=== PATIENT | female | born 1940 | race Caucasian/White ===

== ENCOUNTER 2016-06-05 12:03 | Emergency (ER) | payer MEDICARE ==
[2016-01-06 06:29] VITALS: BMI 22.7
[~2016-06-05 12:03] MED LIST: CELEXA20 MG PO; COUMADIN2 MG PO; ISOSORBIDE MONO30 M1 PO; K-DUR20 MEQ PO; LASIX40 MG PO; METHADONE5 MG PO; PACERONE200 MG PO; UNITHROID50 MCG PO
== END 2016-06-05 14:29 | disposition home or self-care (01) ==
LOC: D.ER 12:03
DX: S63.501A Unspecified sprain of right wrist, initial encounter (principal); W19.XXXA Unspecified fall, initial encounter; Y93.89 Activity, other specified; Y92.019 Unspecified place in single-family (private) house as the place of occurrence of the external cause; F32.9 Major depressive disorder, single episode, unspecified

== ENCOUNTER 2020-09-15 21:57 | Inpatient (IN) | payer MEDICARE ==
[~2020-09-15] VITALS: Ht 160 cm; Wt 57.2 kg
--- NOTE | ~2020-09-15 | OP ---
PATIENT NAME: MIGUEL ANGEL RENE MEDICAL RECORD: [id number] :42 LOCATION:D.[id number] ADMISSION DATE:09/15/20 SURGEON: BONITA MARCELO MD DATE OF OPERATION: 09/19/2020 PREOPERATIVE DIAGNOSIS: Right periprosthetic hip fracture. POSTOPERATIVE DIAGNOSIS: Right periprosthetic hip fracture. PROCEDURE PERFORMED: ORIF right periprosthetic hip fracture. INDICATIONS: Ms. Rene is a 80-year-old female who fell at home earlier this week and injured her right hip. She was turning around when she lost her balance and fell landing on her right side. She complained of pain and inability to weightbear and was brought to [place] where she was found to have a Secor B1 periprosthetic fracture of the right hip. She was also on Coumadin for blood clotting disorder and was admitted for medical management and surgery. Once we were able to correct her Coumadin, she was brought to the operating room today for operative repair. Risks, benefits, and alternatives of surgery were discussed with the patient and consent was obtained. DESCRIPTION OF PROCEDURE: The patient was met in the holding area where her identity and confirmation of procedure was performed. The right lower extremity was marked and she was taken to the operating room where she was placed supine on the operating table. Anesthesia was administered. She was then positioned on the [place] table and extremities were positioned and padded appropriately. The right lower extremity was prepped and draped in a sterile fashion. The patient received preoperative antibiotics as well as TXA and a timeout was performed prior to initiating the case. Upon initiation of the case, a Zavala-Perrin approach was utilized for exposure. The previous incision was utilized and then extended distally. We incised through the skin and subcutaneous tissues down to the tensor fascia. The fascia was then split longitudinally and the interval between tensor and the sartorius/rectus was utilized for deep exposure. We continued our dissection deep down to the anterior hip capsule. We then began releasing the tissues distally for exposure of our implant in the proximal femur. The vastus lateralis was split within its muscular body along the anterolateral femur. The bleeders throughout the muscle were cauterized. Once the fracture was able to be exposed and identified, the fracture was noted to be a long oblique fracture segment. The stem was still well fixed to the anterior fragment. It was therefore decided to fix this using a periprosthetic plate with cables and screws. The fracture hematoma was debrided. We then placed cables around the central and distal portion of the fracture and began applying traction to the leg. As traction was applied, we were able to obtain a provisional reduction. The cables were then sequentially tightened. We adjusted for rotation slightly until we were pleased with the reduction of the fracture. The cables were then securely tightened. A Christina periprosthetic proximal femur plate was then positioned over the lateral cortex of the femur. It was adjusted for positioning and alignment. Once we were pleased with its alignment under fluoroscopy, K-wires were placed distal and proximal to temporarily hold it in place. We then placed a cortical screw just distal to the fracture to compress the plate to the bone. We then placed a cable through the plate using the eye whole pieces and securely tightened it proximally. We repeated this with another cable at the eyelet near the distal end of the stem. A third cable was placed near the central portion of the stem. The plate was placed down over the cables that we had used for our reduction and these were OPERATIVE REPORT [id number] MIGUEL ANGEL RENE securely tightened, cut and left in place. The other cables were tightened and cut as well. We then began placing screws distally. Four locking screws and one cortical screw were placed distally through the plate to secure the plate distally. This provided good fixation of our fracture. Final images were obtained that showed good alignment and fixation of the fracture. The wound was irrigated thoroughly with saline. The muscle belly was reapproximated with 0 Vicryl suture. The IT band and tensor fascia was then closed with 0 Vicryl suture as well. Subcutaneous tissues were irrigated thoroughly with saline. Subcutaneous tissue was closed with 2-0 Vicryl and the skin was closed with tyrel. There was some tension on the skin distally and tension sutures were placed to help relieve some of the pressure on the tyrel. The sterile dressing was then placed. The patient was turned back over to anesthesia where she was awakened and taken to the recovery room in stable condition. POSTOPERATIVE PLAN: The patient is going to return to the floor for continued postoperative care. She will receive 24 hours of postoperative antibiotics to be started on DVT prophylaxis tomorrow. Physical therapy will be consulted to assist with mobilization. Touchdown weightbearing right lower extremity. She will likely need a course of rehab upon discharge. COMPLICATIONS: None. ESTIMATED BLOOD LOSS: 2000 mL. ANESTHESIA: General with peripheral nerve block. TRANSINT:[id number] Voice Confirmation ID: [id number] DOCUMENT ID: [id number] BONITA MARCELO MD CC: [id number] DICTATION DATE: 09/20/20 0046 BROOM MAN: 09/20/20 0544 ADM IN [facility] [address] [id number]
[2020-09-15 22:47] VITALS: BP 152/95
--- NOTE | 2020-09-15 23:34 | NUR ---
PLACED PUREWICK, PT TOLERATED WELL
[2020-09-15 23:43] VITALS: BP 133/63
[2020-09-15 23:55] LABS: BASOPHILS 0.3 % (0-2); EOSINOPHILS 0.6 % (0-7); HEMATOCRIT 35.1 % (36.0-48.0); HEMOGLOBIN 11.3 g/dL (12-16); LYMPHOCYTES 7.9 % (15-50); MCH 29.6 pg (26.0-34.0); MCHC 32.2 g/dL (31.0-37.0); MONOCYTES 3.7 % (2-11); NEUTROPHILS 87.5 % (40-80); RBC 3.81 10x6/uL (4.00-5.40); RDW 17.4 % (11.5-14.5); WBC 11.3 10x3/uL (4.8-10.8)
[2020-09-15 23:56] LABS: PLATELET COUNT 176 10x3/uL (130-400)
[2020-09-16] VITALS (10 sets, daily range): BP systolic 83–143; BP diastolic 40–87; BMI 22.3
[2020-09-16 00:17] LABS: ANION GAP 10.1 mmol/L (8-16); CALCIUM 8.7 mg/dL (8.5-10.1); CARBON DIOXIDE 31.1 mmol/L (21.0-32.0); CREATININE - SERUM 1.1 mg/dL (0.6-1.3); POTASSIUM - SERUM 4.2 mmol/L (3.5-5.1)
[2020-09-16 00:21] LABS: ALBUMIN 3.2 g/dL (3.4-5.0); BILIRUBIN - TOTAL 0.87 mg/dL (0.2-1.3); PROTEIN - SERUM 6.8 g/dL (6.4-8.2)
[2020-09-16 00:24] LABS: APTT 35.6 SECONDS (22.8-39.4); INR 1.79 (0.85-1.17); PROTIME 19.3 SECONDS (11.6-15.0)
[2020-09-16 06:24] LABS: CKMB 2.3 U/L (0.0-3.6); CREATINE KINASE 209 UL (21-215)
[2020-09-16 06:25] LABS: TROPONIN-I < 0.017 ng/mL (0.000-0.060)
--- NOTE | 2020-09-16 09:42 | NUR ---
PER DR. MARCELO, PT WILL GO TO SURGERY 09/17/20. WOULD LIKE PT TO MOVE TO HOSPITAL BED TODAY AWAITING SURGERY TOMORROW. HS NOTIFIED AT THIS TIME.
--- NOTE | 2020-09-16 10:57 | NUR ---
REPORT CALLED TO NAIMA RN/ ROOM IS NOT CLEAN AT THIS TIME. WILL TRANSPORT PT UPON COMPLETION OF CLEANING.
--- NOTE | 2020-09-16 14:30 | NUR ---
RECEIVED TO ROOM 2229 VIA STRETCHER FROM ER. A/O X3. C/O PAIN TO RIGHT THIGH. SKIN IS INTACT WITHOUT REDNESS BUT LARGE BRUISE NOTED TO LOWER ABDOMEN. IV TO LEFT FOREARM IS PATENT WITHOUT REDNESS AT INSERTION SITE. DENIES NEEDS.
--- NOTE | 2020-09-16 15:00 | NUR ---
ASSISTED WITH BED JENKINS PER STAFF. VOIDED 50CC CLEAR YELLOW URINE. REPOSITIONED IN BED FOR COMFORT. REQUESTED AND GIVEN 5MG METHADONE PO FOR C/O RIGHT THIGH PAIN LEVEL 8. WILL MONITOR.
--- NOTE | 2020-09-16 17:00 | NUR ---
RESTING QUIETLY IN BED. REPORTS PAIN IMPROVED.
--- NOTE | 2020-09-16 18:55 | NUR ---
ATE SOME OF SUPPER. VISITORS IN ROOM. DENIES NEEDS. PUREWICK IN PLACE AND FUNCTIONING.
--- NOTE | 2020-09-16 20:00 | NUR ---
RESTING IN BED EYES CLOSED, AROUSED EASILY, REPORTS PAIN TO RIGHT LEG WITH MOVEMENT, SEE SHIFT ASSESSMENT, CALL LIGHT IN REACH
--- NOTE | 2020-09-16 23:30 | NUR ---
LOLLY NATURAL RESOURCES TECHNICIAN NOTIFIED OF BP 83/45, INSTRUCTED TO CHECK MANUAL BP AND IF STILL LOW GIVE 500CC FLUID BOLUS, AND HOLD METHADONE DOSE TONIGHT, MANUAL BP 92/58 FLUID BOLUS STARTED WILL RECHECK
[2020-09-17] VITALS (7 sets, daily range): BP systolic 90–124; BP diastolic 45–78
--- NOTE | 2020-09-17 01:00 | NUR ---
BP RECHECKED MANUAL 90/60 AFTER FLUID BOLUS WILL MONITOR
--- NOTE | 2020-09-17 03:59 | NUR ---
C/O PAIN TO LEG BP WNL, REQUESTING PAIN MED, METHADONE GIVE IT WAS NOT GIVEN EARLIER DUE TO LOW BP
--- NOTE | 2020-09-17 05:00 | NUR ---
ABD DISTENDED, ONLY 100 CC URINE NOTED IN PERWIC CANISTER, BLADDER SCAN DONE 650CC, ARRIETA CATH PLACED DUE TO GOING TO SURGERY TODAY, RETURN OF 800CC CLEAR SINDY URINE
[2020-09-17 06:24] LABS: BASOPHILS 0.3 % (0-2); EOSINOPHILS 2.2 % (0-7); HEMOGLOBIN 9.8 g/dL (12-16); LYMPHOCYTES 11.3 % (15-50); MCH 31.2 pg (26.0-34.0); MCHC 33.9 g/dL (31.0-37.0); MCV 92.1 fL (80.0-100.0); MEAN PLATELET VOLUME 7.4 fL (7.4-10.4); MONOCYTES 6.1 % (2-11); NEUTROPHILS 80.1 % (40-80); PLATELET COUNT 150 10x3/uL (130-400); RBC 3.15 10x6/uL (4.00-5.40); RDW 17.5 % (11.5-14.5); WBC 9.7 10x3/uL (4.8-10.8)
[2020-09-17 06:36] LABS: ALBUMIN 2.9 g/dL (3.4-5.0); BILIRUBIN - TOTAL 0.92 mg/dL (0.2-1.3); CALCIUM 8.2 mg/dL (8.5-10.1); CARBON DIOXIDE 29.4 mmol/L (21.0-32.0); CREATININE - SERUM 1.2 mg/dL (0.6-1.3); MAGNESIUM - SERUM 1.9 mg/dL (1.8-2.4); POTASSIUM - SERUM 4.4 mmol/L (3.5-5.1); PROTEIN - SERUM 6.3 g/dL (6.4-8.2)
[2020-09-17 06:49] LABS: BILIRUBIN NEGATIVE (NEGATIVE); KETONE NEGATIVE mg/dL (< 1+); NITRITE NEGATIVE (NEGATIVE); UROBILINOGEN NORMAL mg/dL (< 2)
[2020-09-17 06:55] LABS: INR 2.52 (0.85-1.17); PROTIME 25.2 SECONDS (11.6-15.0)
--- NOTE | 2020-09-17 07:20 | NUR ---
PT RESTING QUIETLY IN BED. RESP EVEN AND UNLABORED. IV TOLEFT HAND WITH 1/2 NS @ 75ML/HR INFUSING VIA PUMP. SITE WITHOUT REDNESS OR EDEMA. PT DENIES PAIN AT THIS TIME. PT QUESTIONS WHEN HAVING SURGERY. PT REMAINS NPO FOR UPCOMING PROCEDURE. DENIES FURTHER NEEDS AT THIS TIME. CL WITHIN REACH. ENCOURAGED TO CALL WITH NEEDS. CONTINUE POC
[2020-09-17 08:16] LABS: INR 2.45 (0.85-1.17); PROTIME 24.7 SECONDS (11.6-15.0)
[2020-09-17 10:05] LABS: INR 2.55 (0.85-1.17); PROTIME 25.5 SECONDS (11.6-15.0)
--- NOTE | 2020-09-17 10:29 | MORECARE ---
CASE MANAGEMENT DISCHARGE SUMMARY PATIENT: MIGUEL ANGEL RENE UNIT: [id number] ADM DATE: 09/15/20 AGE: 80 : 41 SEX: F ROOM/BED: D.2229 AUTHOR: VIBHA TAVERA PHYSICIAN: REFERRING PHYSICIAN: NAYA MCMAHON DO DATE OF SERVICE: 09/17/20 Case Management Discharge Planning Summary DCP REVIEW SUMMARY ANTICIPATED D/C DATE: EXPECTED LOS : CASE STATUS: DCP Initiated INITIAL REVIEW: 09/15/2020 INITIAL REVIEWER: Seema Casillas FINAL DISCHARGE DISPOSITION: : FINAL REVIEWER: FINAL REVIEW DATE: DCP Focus Questions & Answers QUESTION: ANSWER : PATIENT: MIGUEL ANGEL RENE ENCOUNTER: [id number] MEDICAL RECORD#: [id number] ADMISSION DATE: 09/15/2020 DISCHARGE DATE: ATTENDING MD: NAYA GOODE : AGE: 80 MARITAL STATUS: D DC PLAN ID: [id number] FACILITY: [facility] PRINTED ON: 09/17/20 10:29 CT All edits/amendments must be made on the electronic document DICTATION DATE: 09/17/20 102 COLLAR TURNER: DM 09/17/20 1029 RPT#: [id number] DC DATE: STATUS: ADM IN [facility] [address] [place] [address] END OF REPORT
[2020-09-17 14:13] LABS: INR 2.13 (0.85-1.17); PROTIME 22.1 SECONDS (11.6-15.0)
--- NOTE | 2020-09-17 14:49 | MORECARE ---
CASE MANAGEMENT DISCHARGE SUMMARY PATIENT: MIGUEL ANGEL RENE UNIT: [id number] ADM DATE: 09/15/20 AGE: 80 : 41 SEX: F ROOM/BED: D.2229 AUTHOR: VIBHA TAVERA PHYSICIAN: REFERRING PHYSICIAN: NAYA MCMAHON DO DATE OF SERVICE: 09/17/20 Case Management Discharge Planning Summary DCP REVIEW SUMMARY ANTICIPATED D/C DATE: EXPECTED LOS : CASE STATUS: DCP Initiated INITIAL REVIEW: 09/15/2020 INITIAL REVIEWER: Seema Casillas FINAL DISCHARGE DISPOSITION: : FINAL REVIEWER: FINAL REVIEW DATE: DCP Focus Questions & Answers QUESTION: ANSWER : PATIENT: MIGUEL ANGEL RENE ENCOUNTER: [id number] MEDICAL RECORD#: [id number] ADMISSION DATE: 09/15/2020 DISCHARGE DATE: ATTENDING MD: NAYA GOODE : AGE: 80 MARITAL STATUS: D DC PLAN ID: [id number] FACILITY: [facility] PRINTED ON: 09/17/20 14:49 CT All edits/amendments must be made on the electronic document DICTATION DATE: 09/17/201447 SALES REPRESENTATIVE MARINE SUPPLIES: DM 09/17/201447 RPT#: [id number] DC DATE: STATUS: ADM IN [facility] [address] [place] [address] END OF REPORT
--- NOTE | 2020-09-17 18:14 | MORECARE ---
CASE MANAGEMENT DISCHARGE SUMMARY PATIENT: MIGUEL ANGEL RENE UNIT: [id number] ADM DATE: 09/15/20 AGE: 80 : 41 SEX: F ROOM/BED: D.2229 AUTHOR: VIBHA TAVERA PHYSICIAN: REFERRING PHYSICIAN: NAYA MCMAHON DO DATE OF SERVICE: 09/17/20 Case Management Discharge Planning Summary DCP REVIEW SUMMARY ANTICIPATED D/C DATE: EXPECTED LOS : CASE STATUS: DCP Initiated INITIAL REVIEW: 09/15/2020 INITIAL REVIEWER: Seema Casillas FINAL DISCHARGE DISPOSITION: : FINAL REVIEWER: FINAL REVIEW DATE: DCP Focus Questions & Answers QUESTION: ANSWER : PATIENT: MIGUEL ANGEL RENE ENCOUNTER: [id number] MEDICAL RECORD#: [id number] ADMISSION DATE: 09/15/2020 DISCHARGE DATE: ATTENDING MD: NAYA GOODE : AGE: 80 MARITAL STATUS: D DC PLAN ID: [id number] FACILITY: [facility] PRINTED ON: 09/17/20 18:14 CT All edits/amendments must be made on the electronic document DICTATION DATE: 09/17/201813 RACK PRODUCTION WORKER: DM 09/17/201813 RPT#: [id number] DC DATE: STATUS: ADM IN [facility] [address] [place] [address] END OF REPORT
--- NOTE | 2020-09-17 20:00 | NUR ---
ALERT RESTING IN BED, DENIES PAIN EXCEPT WITH MOVEMENT OF RIGHT LEG, SEE SHIFT ASSESSMENT, CALL LIGHT IN REACH
[2020-09-18] VITALS (13 sets, daily range): BP systolic 86–126; BP diastolic 44–80
[2020-09-18 05:16] LABS: BASOPHILS 0.4 % (0-2); EOSINOPHILS 5.2 % (0-7); HEMATOCRIT 23.8 % (36.0-48.0); LYMPHOCYTES 12.5 % (15-50); MCH 31.1 pg (26.0-34.0); MCHC 33.5 g/dL (31.0-37.0); MCV 92.8 fL (80.0-100.0); MEAN PLATELET VOLUME 7.6 fL (7.4-10.4); MONOCYTES 8.5 % (2-11); NEUTROPHILS 73.4 % (40-80); RBC 2.56 10x6/uL (4.00-5.40); RDW 17.5 % (11.5-14.5)
[2020-09-18 05:35] LABS: PLATELET COUNT 102 10x3/uL (130-400)
[2020-09-18 05:40] LABS: INR 1.78 (0.85-1.17); PROTIME 19.2 SECONDS (11.6-15.0)
[2020-09-18 05:48] LABS: ALBUMIN 2.4 g/dL (3.4-5.0); BILIRUBIN - TOTAL 0.77 mg/dL (0.2-1.3); CALCIUM 7.8 mg/dL (8.5-10.1); CARBON DIOXIDE 30.1 mmol/L (21.0-32.0); CREATININE - SERUM 1.1 mg/dL (0.6-1.3); MAGNESIUM - SERUM 1.8 mg/dL (1.8-2.4); POTASSIUM - SERUM 4.1 mmol/L (3.5-5.1); PROTEIN - SERUM 5.7 g/dL (6.4-8.2)
[2020-09-18 09:40] LABS: % SATURATION 13 % (15-55); IRON 33 ug/dl (35-150); TOTAL IRON BIND CAPACITY 252 ug/dl (260-445); UNSAT IRON BIND CAPACITY 219 ug/dl (150-375)
--- NOTE | 2020-09-18 12:54 | NUR ---
SPOKE WITH DR BRONSON ABOUT IMAGING FOR BRUISING AND MASS ALONG RLQ. CT WITHOUT WAS ORDERED PER MD. RETURN TO REG DIET. BLOOD TRANSFUSING. PT NEEDING SOME REORIENTATION. CL IN REACH. WCTM
--- NOTE | 2020-09-18 16:45 | NUR ---
PT TRANSFER CANCELLED PER MD. BP RISING
--- NOTE | 2020-09-18 19:41 | NUR ---
PT ARRIETA CARE DONE. CL IN REACH. BED ALARM ON. PT RIGHT LEG BENT. WCTM
--- NOTE | 2020-09-18 20:00 | NUR ---
LOLLY CAZARES PRESENT DISCUSSED LOW BP, INSTRUCTED NEED TO DO MANUAL BP AND RECORD
--- NOTE | 2020-09-18 21:30 | NUR ---
RESTING IN BED, C/O PAIN TO RIGHT LEG WITH MOVEMENT, SEE SHIFT ASSESSMENT, CALL LIGHT IN REACH
[2020-09-19] VITALS: BP 138/72
--- NOTE | 2020-09-19 | NUR ---
MANUAL BP R ARM 138/72, MACHINE READING 111/54
[2020-09-19 04:00] VITALS: BP 110/68
[2020-09-19 07:18] LABS: BASOPHILS 0.3 % (0-2); EOSINOPHILS 0.6 % (0-7); HEMATOCRIT 30.7 % (36.0-48.0); HEMOGLOBIN 10.3 g/dL (12-16); LYMPHOCYTES 9.1 % (15-50); MCH 30.8 pg (26.0-34.0); MCHC 33.4 g/dL (31.0-37.0); MCV 92.2 fL (80.0-100.0); MEAN PLATELET VOLUME 7.7 fL (7.4-10.4); MONOCYTES 7.3 % (2-11); NEUTROPHILS 82.7 % (40-80); PLATELET COUNT 111 10x3/uL (130-400); RDW 17.2 % (11.5-14.5)
[2020-09-19 07:20] LABS: INR 1.44 (0.85-1.17); PROTIME 16.3 SECONDS (11.6-15.0)
[2020-09-19 07:33] LABS: RBC 3.33 10x6/uL (4.00-5.40)
[2020-09-19 07:36] LABS: ALBUMIN 2.4 g/dL (3.4-5.0); ANION GAP 10.2 mmol/L (8-16); BILIRUBIN - TOTAL 3.01 mg/dL (0.2-1.3); CALCIUM 8.1 mg/dL (8.5-10.1); CARBON DIOXIDE 27.7 mmol/L (21.0-32.0); CREATININE - SERUM 0.9 mg/dL (0.6-1.3); MAGNESIUM - SERUM 1.9 mg/dL (1.8-2.4); PROTEIN - SERUM 5.9 g/dL (6.4-8.2)
[2020-09-19 07:38] LABS: POTASSIUM - SERUM 4.9 mmol/L (3.5-5.1)
[2020-09-19 08:18] VITALS: BP 106/64
[2020-09-19 09:41] VITALS: BP 106/64
[2020-09-19 12:07] VITALS: BP 99/56
--- NOTE | 2020-09-19 13:24 | NUR ---
OT NOTE: SURGERY STILL WAITING FOR LABS TO IMPROVE. OT WILL EVAL FOLLOWING SURGERY. THANK YOU FOR REFERAL HUONG CASTANO OTR/L
[2020-09-19 13:49] VITALS: Ht 160 cm; Wt 57.2 kg
[2020-09-19 18:10] VITALS: BP 94/46
[2020-09-20] VITALS (10 sets, daily range): BP systolic 81–124; BP diastolic 49–70
[2020-09-20 06:30] LABS: INR 1.57 (0.85-1.17); PROTIME 17.4 SECONDS (11.6-15.0)
[2020-09-20 06:40] LABS: BASOPHILS 0.1 % (0-2); EOSINOPHILS 0 % (0-7); HEMATOCRIT 31.7 % (36.0-48.0); HEMOGLOBIN 10.7 g/dL (12-16); LYMPHOCYTES 7.3 % (15-50); MCH 30.7 pg (26.0-34.0); MCHC 33.7 g/dL (31.0-37.0); MCV 91.1 fL (80.0-100.0); MEAN PLATELET VOLUME 7.6 fL (7.4-10.4); MONOCYTES 6.5 % (2-11); NEUTROPHILS 86.1 % (40-80); PLATELET COUNT 102 10x3/uL (130-400); RBC 3.49 10x6/uL (4.00-5.40); RDW 16.3 % (11.5-14.5)
[2020-09-20 06:47] LABS: BILIRUBIN - TOTAL 1.66 mg/dL (0.2-1.3); CALCIUM 7.6 mg/dL (8.5-10.1); CREATININE - SERUM 0.8 mg/dL (0.6-1.3); MAGNESIUM - SERUM 1.8 mg/dL (1.8-2.4); PROTEIN - SERUM 4.8 g/dL (6.4-8.2)
[2020-09-20 06:48] LABS: ANION GAP 15.5 mmol/L (8-16); CARBON DIOXIDE 20.5 mmol/L (21.0-32.0)
[2020-09-20 06:49] LABS: ALBUMIN 1.7 g/dL (3.4-5.0)
--- NOTE | 2020-09-20 08:20 | NUR ---
AWAKE AND ALERT. ORIENTED TO SELF ONLY. ATTEMPTS TO REORIENT WITHOUT APPLICATION TECHNICIAN SUCCESS. LUNGS ARE CLEAR BILATERALLY, NO COUGH NOTED. SKIN IS INTACT WITHOUT REDNESS EXCEPT INCISION TO RIGHT HIP WHICH HAS A DRY INTACT DRESSING IN PLACE. ARRIETA PATENT WITH CLEAR YELLOW URINE. IV TO LEFT FOREARM IS PATENT AND SL TO LEFT AC IS PATENT WITHOUT REDNESS AT INSERTION SITE. DENIES NEEDS.
--- NOTE | 2020-09-20 09:30 | NUR ---
ATE ONLY A FEW BITES OF BREAKFAST. TOOK AM MEDS WITHOUT DIFFICULTY. NO NEEDS NOTED. CONTINUES VERY CONFUSED.
--- NOTE | 2020-09-20 10:00 | NUR ---
PULLED IV OUT WITH CATHETER INTACT.
--- NOTE | 2020-09-20 13:19 | NUR ---
REHAB PRESCREEN RECEIVED. PATIENT IS A MANAGED MEDICARE. I WILL DO A CHART SCREEN, AND IF SHE MEETS CRITERIA I WILL BE PREPARED TO SEND CLINICALS ON TUESDAY. THANK YOU FOR THE REFERRAL. JENNIFER WILEY RN CLINICAL LIAISON, INPATIENT REHAB
--- NOTE | 2020-09-20 14:07 | NUR ---
MUCH CALMER AT THIS TIME AFTER SPEAKING WITH FAMILY. WILL CONTINUE TO MONITOR.
--- NOTE | 2020-09-20 19:41 | NUR ---
RESTING QUIETLY IN BED. DENIES NEEDS.
--- NOTE | 2020-09-20 19:47 | NUR ---
PATIENT RESTING IN BED WITH NO S/S OF DISTRESS AND DENIES NEEDS AT THIS TIME. BED IN LOWEST POSITION AND CALL LIGHT IN REACH. ENCOURAGED PATIENT TO CALL WITH NEEDS.
--- NOTE | 2020-09-20 21:02 | NUR ---
ADMINISTERED MEDS PER ORDERS. PATIENT SALLIE WELL. ENCOURAGED PATIENT TO CALL WITH NEEDS.
[2020-09-21] VITALS (7 sets, daily range): BP systolic 101–150; BP diastolic 57–78
[2020-09-21 06:10] LABS: BASOPHILS 0 % (0-2); EOSINOPHILS 0 % (0-7); HEMOGLOBIN 8.9 g/dL (12-16); LYMPHOCYTES 5.7 % (15-50); MCH 31.1 pg (26.0-34.0); MCHC 34.3 g/dL (31.0-37.0); MCV 90.7 fL (80.0-100.0); MEAN PLATELET VOLUME 7.3 fL (7.4-10.4); MONOCYTES 10.7 % (2-11); NEUTROPHILS 83.6 % (40-80); RBC 2.87 10x6/uL (4.00-5.40); RDW 15.6 % (11.5-14.5)
[2020-09-21 06:25] LABS: PLATELET COUNT 156 10x3/uL (130-400); WBC 10.1 10x3/uL (4.8-10.8)
[2020-09-21 07:02] LABS: ANION GAP 12.9 mmol/L (8-16); BILIRUBIN - TOTAL 1.19 mg/dL (0.2-1.3); CALCIUM 7.8 mg/dL (8.5-10.1); CARBON DIOXIDE 23.3 mmol/L (21.0-32.0); MAGNESIUM - SERUM 1.8 mg/dL (1.8-2.4); POTASSIUM - SERUM 5.2 mmol/L (3.5-5.1); PROTEIN - SERUM 5.3 g/dL (6.4-8.2)
[2020-09-21 07:06] LABS: CREATININE - SERUM 1.5 mg/dL (0.6-1.3)
[2020-09-21 07:18] LABS: INR 1.4 (0.85-1.17); PROTIME 15.9 SECONDS (11.6-15.0)
--- NOTE | 2020-09-21 08:08 | NUR ---
RESTING QUIETLY IN BED WITH EYES CLOSED. LUNGS ARE CLEAR BILATERALLY, NO COUGH NOTED. SKIN IS INTACT WITHOUT REDNESS EXCEPT INCISION TO RIGHT LEG WHICH HAS A DRY INTACT DRESSING IN PLACE. IV TO LEFT AC IS PATENT WITHOUT REDNESS AT INSERTION SITE. ARRIETA PATENT WITH CLEAR SINDY URINE. NO NEEDS NOTED.
--- NOTE | 2020-09-21 19:49 | NUR ---
ATE ONLY A FEW BITES OF SUPPER WITH STAFF FEEDING. NO CHANGES NOTED. DENIES NEEDS.
--- NOTE | 2020-09-21 20:12 | NUR ---
ADMINISTERED MEDS PER ORDERS. PATIENT SALLIE WELL. ENCOURAGED PATIENT TO CALL WITH NEEDS.
[2020-09-22] VITALS (10 sets, daily range): BP systolic 85–117; BP diastolic 43–70
[2020-09-22 06:26] LABS: BASOPHILS 0.2 % (0-2); EOSINOPHILS 2.8 % (0-7); HEMATOCRIT 24.4 % (36.0-48.0); HEMOGLOBIN 8.2 g/dL (12-16); LYMPHOCYTES 10.9 % (15-50); MCH 30.9 pg (26.0-34.0); MCHC 33.4 g/dL (31.0-37.0); MCV 92.6 fL (80.0-100.0); MEAN PLATELET VOLUME 7.2 fL (7.4-10.4); MONOCYTES 8.9 % (2-11); NEUTROPHILS 77.2 % (40-80); PLATELET COUNT 151 10x3/uL (130-400); RBC 2.64 10x6/uL (4.00-5.40)
[2020-09-22 06:33] LABS: INR 1.43 (0.85-1.17); PROTIME 16.2 SECONDS (11.6-15.0)
[2020-09-22 06:35] LABS: WBC 7.5 10x3/uL (4.8-10.8)
[2020-09-22 06:45] LABS: ALBUMIN 1.9 g/dL (3.4-5.0); ANION GAP 10.5 mmol/L (8-16); BILIRUBIN - TOTAL 1.04 mg/dL (0.2-1.3); CARBON DIOXIDE 25.9 mmol/L (21.0-32.0); CREATININE - SERUM 1.3 mg/dL (0.6-1.3); PROTEIN - SERUM 5.1 g/dL (6.4-8.2)
[2020-09-22 06:46] LABS: POTASSIUM - SERUM 4.4 mmol/L (3.5-5.1)
--- NOTE | 2020-09-22 12:01 | NUR ---
SPOKE WITH GERMAN PAZ I WAS TRYING TO PREMEDICATE HER. PT WAS NOT VERY VOCAL. ANSWERED PHONE FOR PT WHEN BROTHER DON CALLED WHILE I WAS STILL PREMEDICATING. ANSWERED SOME QUESTIONS. PT IS RESPONDING SLOWLY. CL IN REACH. BLOOD HAS BEEN STARTED. BED ALARM ON. SCD'S ON. ARRIETA CARE COMPLETED AT THIS TIME. [facility]
--- NOTE | 2020-09-22 12:04 | MORECARE ---
CASE MANAGEMENT DISCHARGE SUMMARY PATIENT: MIGUEL ANGEL RENE UNIT: [id number] ADM DATE: 09/15/20 AGE: 80 : 41 SEX: F ROOM/BED: D.2229 AUTHOR: AYSE,DOC PHYSICIAN: REFERRING PHYSICIAN: NAYA MCMAHON DO DATE OF SERVICE: 09/22/20 Case Management Discharge Planning Summary COMMENTS ENTERED DATE: 09/22/20 12:01 CT COMMENT TYPE: Discharge Planning REVIEWER: Florence Galeana CM FAXED REFERRAL TO [facility]. WAITING CALL BACK. DCP REVIEW SUMMARY ANTICIPATED D/C DATE: EXPECTED LOS : CASE STATUS: DCP Initiated INITIAL REVIEW: 09/15/2020 INITIAL REVIEWER: Seema Casillas FINAL DISCHARGE DISPOSITION: : FINAL REVIEWER: FINAL REVIEW DATE: DCP Focus Questions & Answers QUESTION: ANSWER : PROVIDER NETWORKING REVIEW DATE: 09/22/2020 SERVICE TYPE: Nursing Home Facility REVIEWER: Florence Galeana PATIENT: MIGUEL ANGEL RENE ENCOUNTER: [id number] MEDICAL RECORD#: [id number] ADMISSION DATE: 09/15/2020 DISCHARGE DATE: ATTENDING MD: NAYA GOODE : AGE: 80 MARITAL STATUS: D DC PLAN ID: [id number] FACILITY: [facility] PRINTED ON: 09/22/20 12:04 CT All edits/amendments must be made on the electronic document DICTATION DATE: 09/22/20 120 SPECTROGRAPH OPERATOR: DM 09/22/20 1204 RPT#: [id number] DC DATE: STATUS: ADM IN [facility] [address] [place] [address] END OF REPORT
--- NOTE | 2020-09-22 15:52 | NUR ---
SECOND BAG OF PRBCS RUNNING. BED ALARM ON. PT MORE AROUSABLE. CL IN REACH. NO NEEDS AT THIS TIME. VS WNL. BIG DIFFERENCE IN MACHINE VS AND MISAEL VS. WCTM
--- NOTE | 2020-09-22 22:25 | NUR ---
ADMINISTERED MEDS PER ORDERS. PATIENT SALLIE WELL. ENCOURAGED PATIENT TO CALL WITH NEEDS.
[2020-09-23] VITALS: BP 85/52
[2020-09-23 04:00] VITALS: BP 91/44
[2020-09-23 07:00] LABS: MCH 31.6 pg (26.0-34.0); MCHC 34.1 g/dL (31.0-37.0); MCV 92.6 fL (80.0-100.0); MEAN PLATELET VOLUME 6.8 fL (7.4-10.4); PLATELET COUNT 142 10x3/uL (130-400); RBC 3.16 10x6/uL (4.00-5.40); RDW 15.9 % (11.5-14.5); WBC 8.4 10x3/uL (4.8-10.8)
[2020-09-23 07:02] LABS: ALBUMIN 1.7 g/dL (3.4-5.0); ANION GAP 9.3 mmol/L (8-16); BILIRUBIN - TOTAL 1.29 mg/dL (0.2-1.3); CALCIUM 7.6 mg/dL (8.5-10.1); CARBON DIOXIDE 28.1 mmol/L (21.0-32.0); CREATININE - SERUM 1.3 mg/dL (0.6-1.3); POTASSIUM - SERUM 3.4 mmol/L (3.5-5.1); PROTEIN - SERUM 4.8 g/dL (6.4-8.2)
[2020-09-23 07:13] LABS: HEMATOCRIT 29.3 % (36.0-48.0)
[2020-09-23 09:03] VITALS: BP 115/70
[2020-09-23 12:50] VITALS: BP 119/51
[2020-09-23 14:10] LABS: ANISOCYTOSIS OCC; EOSINOPHILS 5 % (0-7); LYMPHOCYTES 14 % (15-50); MONOCYTES 4 % (2-11); NEUTROPHILS 71 % (40-80); PLATELET ESTIMATE NORMAL
--- NOTE | 2020-09-23 15:11 | NUR ---
OT NOTE: PT COMPLETED SUPINE TO SIT WITH MAX-TOTAL A. PT COMPLETED EOB SITTING WITH MIN A. PT EXHIBITED MILD-MODERATE CONFUSION. NOTIFIED NURSING. PT COMPLETED FACE HYGIENE WITH MIN A. PT REQUIRED TOTAL A FOR POSITIONING IN BED. [phone] THANK YOU,SHUBHAM CEBALLOS
[2020-09-23 17:21] VITALS: BP 131/69
[2020-09-23 20:00] VITALS: BP 119/65
[2020-09-24] VITALS (10 sets, daily range): BP systolic 90–124; BP diastolic 55–78
[2020-09-24 06:15] LABS: BASOPHILS 0.3 % (0-2); EOSINOPHILS 3.4 % (0-7); HEMATOCRIT 30.6 % (36.0-48.0); HEMOGLOBIN 10.3 g/dL (12-16); LYMPHOCYTES 11.4 % (15-50); MCH 31.6 pg (26.0-34.0); MCHC 33.8 g/dL (31.0-37.0); MCV 93.6 fL (80.0-100.0); MEAN PLATELET VOLUME 6.7 fL (7.4-10.4); MONOCYTES 7.5 % (2-11); NEUTROPHILS 77.4 % (40-80); RBC 3.26 10x6/uL (4.00-5.40); RDW 16.5 % (11.5-14.5); WBC 10.1 10x3/uL (4.8-10.8)
[2020-09-24 06:37] LABS: PLATELET COUNT 187 10x3/uL (130-400)
[2020-09-24 06:40] LABS: ALBUMIN 1.8 g/dL (3.4-5.0); ANION GAP 13.3 mmol/L (8-16); BILIRUBIN - TOTAL 1.1 mg/dL (0.2-1.3); CALCIUM 7.8 mg/dL (8.5-10.1); CARBON DIOXIDE 26.4 mmol/L (21.0-32.0); CREATININE - SERUM 1.1 mg/dL (0.6-1.3); POTASSIUM - SERUM 3.7 mmol/L (3.5-5.1)
--- NOTE | 2020-09-24 08:06 | NUR ---
AWAKE AND ALERT. ORIENTED X3. NO C/O AT THIS TIME. LUNGS ARE CLEAR BILATERALLY, NO COUGH NOTED. SKIN IS INTACT WITHOUT REDNESS EXCEPT INCISION TO RIGHT HIP WHICH HAS A DRY INTACT DRESSING IN PLACE. IV TO LEFT AC IS PATENT WITHOUT REDNESS AT INSERTION SITE. ARRIETA PATENT WITH CLEAR YELLOW URINE. DENIES NEEDS.
--- NOTE | 2020-09-24 09:10 | NUR ---
ATE A FEW BITES OF BREAKFAST. TOOK AM MEDS WITHOUT DIFFICULTY. GIVEN ONE HYDROCODONE FOR C/O RIGHT HIP PAIN LEVEL 5. WILL MONITOR.
--- NOTE | 2020-09-24 13:43 | NUR ---
Nutrition reassessment: Pt now NPO for EGD PO intake of regular diet ~40% average of meals Labs reviewed Ht: 5'3" Wt: 126# +BM Per nurse, pt more alert today Estimated needs, nutrition diagnosis, goals, interventions remain the same as initial assessment on 09/19/20. RDN will continue to monitor patients progress toward nutrition goals in 3-5 days.
--- NOTE | 2020-09-24 14:29 | NUR ---
OFF UNIT VIA BED FOR EGD.
--- NOTE | 2020-09-24 15:31 | NUR ---
OT NOTE: PT FEELING BETTER TODAY. MORE ALERT..LESS CONFUSION/LETHARGY. REQUIRED MOD ASSIST FOR SUPINE TO SIT, HOWEVER, PT WAS ATTEMPTING TO HELP SCOOT TO EOB TODAY.. PREVIOUSLY SHE HAS BEEN TOO FEARFUL OF ATTEMPTING, STATING THAT SHE FEELS LIKE SHES GOING TO FALL OFF THE BED. SITTING BALANCE MUCH BETTER TODAY. ABLE TO PERFORM UE AROM EXS WHILE SITTING ON EOB; GROOMING TASKS WITH SET UP/MIN ASSIST. PRACTICED ROLLING FROM SIDE TO SIDE..PT CONT TO EXHIBIT SIGIFICANT STIFFNESS IN B KNEES (R GREATER THAN LEFT) HUONG CASTANO, OTR/L [id number]
--- NOTE | 2020-09-24 15:34 | NUR ---
RETURNED FROM GI LAB. A/O X3. JULIOS.
--- NOTE | 2020-09-24 16:30 | NUR ---
HAD A VERY SMALL DARK BLACK BLOODY STOOL. SKIN CARE PER STAFF. PATIENT REPORTED A HISTORY OF HEMMORROIDS. WILL MONITOR.
--- NOTE | 2020-09-24 18:11 | NUR ---
ATE 90% OF MEAL. NO C/O AT THIS TIME. NO CHANGES NOTED. DENIES NEEDS.
--- NOTE | 2020-09-24 20:00 | NUR ---
ALERT RESTING IN BED REPORTS PAIN TO RIGH TLEG WITH MOVEMENT, SEE SHIFT ASSESSMENT, CALL LIGHT IN REACH, DENIES NEEDS AT THIS TIME
[2020-09-25] VITALS: BP 109/56
[2020-09-25 04:00] VITALS: BP 91/52
[2020-09-25 06:22] LABS: HEMATOCRIT 31.5 % (36.0-48.0); HEMOGLOBIN 10.4 g/dL (12-16); MEAN PLATELET VOLUME 6.2 fL (7.4-10.4); PLATELET COUNT 189 10x3/uL (130-400); RBC 3.24 10x6/uL (4.00-5.40); RDW 16.5 % (11.5-14.5); WBC 8.9 10x3/uL (4.8-10.8)
[2020-09-25 06:41] LABS: ALBUMIN 1.8 g/dL (3.4-5.0); ANION GAP 8.5 mmol/L (8-16); BILIRUBIN - TOTAL 1.22 mg/dL (0.2-1.3); CARBON DIOXIDE 29.3 mmol/L (21.0-32.0); CREATININE - SERUM 0.9 mg/dL (0.6-1.3); POTASSIUM - SERUM 3.8 mmol/L (3.5-5.1); PROTEIN - SERUM 4.9 g/dL (6.4-8.2)
[2020-09-25 06:43] LABS: MCV 97.1 fL (80.0-100.0)
--- NOTE | 2020-09-25 07:27 | NUR ---
HAD SMALL AMOUNT OF DARK STOOL WITH SOME FRESH BLOOD NOTED WITH CLEANING. WILL MONITOR.
--- NOTE | 2020-09-25 07:53 | NUR ---
AWAKE AND ALERT. ORIENTED X3. C/O PAIN TO RIGHT LEG AT THIS TIME. TO EARLY FOR PRN. WILL MONITOR. IV CAME OUT WITH CATHETER INTACT. WILL RESITE. LUNGS ARE CLEAR BILATERALLY, NO COUGH NOTED. SKIN IS INTACT WITHOUT REDNESS EXCEPT INCISION TO RIGHT HIP WHICH HAS A DRY INTACT DRESSING IN PLACE. ARRIETA PATENT WTIH CLEAR YELLOW URINE. DENIES NEEDS.
--- NOTE | 2020-09-25 09:00 | NUR ---
REQUESTED AND GIVNE ONE HYDROCODONE PO FOR C/O RIGHT HIP PAIN LEVEL 9. WILL MONITOR.
[2020-09-25 09:11] VITALS: BP 129/69
[2020-09-25 09:40] LABS: ANISOCYTOSIS OCC; EOSINOPHILS 4 % (0-7); LYMPHOCYTES 13 % (15-50); MONOCYTES 7 % (2-11); NEUTROPHILS 71 % (40-80); PLATELET ESTIMATE NORMAL
[2020-09-25 09:41] LABS: SMUDGE CELLS OCC
[2020-09-25] MEDS ORDERED: ELIQUIS5 MG PO (09:50)
[2020-09-25] MEDS ORDERED: FLORAJEN DIGES1 EACH PO (09:50)
[2020-09-25] MEDS ORDERED: PROTONIX40 MG PO (09:50)
[2020-09-25] MEDS ORDERED: ZITHROMAX500 MG PO (09:51)
[2020-09-25] MEDS ORDERED: MIRALAX17 GM PO (09:51)
[2020-09-25] MEDS ORDERED: OMNICEF300 MG PO (09:51)
--- NOTE | 2020-09-25 10:11 | NUR ---
IV RESITED TO RIGHT FOREARM AFTER 2 ATTEMPTS WITH 22G. TOLERATED WELL. INCONTINENT OF STOOL, VERY SMALL DARK LIQUID STOOL. SKIN CARE AND LINENS CHANGED PER STAFF. REPORTED SOME RELIEF WITH USE OF HYDROCODONE.
[2020-09-25 11:32] VITALS: BP 114/60
--- NOTE | 2020-09-25 13:58 | MORECARE ---
CASE MANAGEMENT DISCHARGE SUMMARY PATIENT: MIGUEL ANGEL RENE UNIT: [id number] ADM DATE: 09/15/20 AGE: 80 : 41 SEX: F ROOM/BED: D.2229 AUTHOR: AYSEDOC PHYSICIAN: REFERRING PHYSICIAN: NAYA MCMAHON DO DATE OF SERVICE: 09/25/20 Case Management Discharge Planning Summary COMMENTS ENTERED DATE: 09/25/20 13:51 CT COMMENT TYPE: Discharge Planning REVIEWER: Florence Galeana SPOKE WITH JUAN AT [facility] AND CONFIRMED THEY ARE ACCEPTING PATIENT TODAY. PATIENT WILL TRAVEL VIA AMBULANE TO REHAB. RN TO CALL REPORT TO [address] [place] [address]. CM TO FOLLOW AND ASSIST NEEDED. ENTERED DATE: 09/22/20 12:01 CT COMMENT TYPE: Discharge Planning REVIEWER: Florence Galeana CM FAXED REFERRAL TO [facility] IN [facility]. WAITING CALL BACK. DCP REVIEW SUMMARY ANTICIPATED D/C DATE: EXPECTED LOS : CASE STATUS: DCP Initiated INITIAL REVIEW: 09/15/2020 INITIAL REVIEWER: Seema Casillas FINAL DISCHARGE DISPOSITION: : FINAL REVIEWER: FINAL REVIEW DATE: DCP Focus Questions & Answers QUESTION: ANSWER : PROVIDER NETWORKING REVIEW DATE: 09/22/2020 SERVICE TYPE: Care Home Facility REVIEWER: Florence Galeana PATIENT: MIGUEL ANGEL RENE ENCOUNTER: [id number] MEDICAL RECORD#: [id number] ADMISSION DATE: 09/15/2020 DISCHARGE DATE: ATTENDING MD: NAYA GOODE : AGE: 80 MARITAL STATUS: D DC PLAN ID: [id number] FACILITY: [facility] PRINTED ON: 09/25/20 13:58 CT All edits/amendments must be made on the electronic document DICTATION DATE: 09/25/201357 SALES REPRESENTATIVE PUBLICATIONS: DM 09/25/20 1358 RPT#: [id number] DC DATE: STATUS: ADM IN [facility] [address] [place] [address] END OF REPORT
--- NOTE | 2020-09-25 15:00 | NUR ---
REPORT CALLED TO PHOTO STUDIO ASSISTANT AT [facility] IN [place]. ALL QUESTIONS ANSWERED. DISCHARGE INSTRUCTIONS GIVEN TO PATIENT VERBALLY AND WRITTEN. ALL QUESTIONS ANSWERED. ARRIETA D/C WITH TIP INTACT WITHOUT DIFFICULTY. IV TO RIGHT FOREARM D/C WITH CATHETER INTACT. ALL BELONGINGS WITH PATIENT. FAMILY AWARE OF DISCHARGE.
--- NOTE | 2020-09-25 16:29 | MORECARE ---
CASE MANAGEMENT DISCHARGE SUMMARY PATIENT: MIGUEL ANGEL RENE UNIT: [id number] ADM DATE: 09/15/20 AGE: 80 : 41 SEX: F ROOM/BED: D.2229 AUTHOR: AYSEDOC PHYSICIAN: REFERRING PHYSICIAN: NAYA MCMAHON DO DATE OF SERVICE: 09/25/20 Case Management Discharge Planning Summary COMMENTS ENTERED DATE: 09/25/20 13:51 CT COMMENT TYPE: Discharge Planning REVIEWER: Florence Galeana SPOKE WITH JUAN AT [facility] AND CONFIRMED THEY ARE ACCEPTING PATIENT TODAY. PATIENT WILL TRAVEL VIA AMBULANE TO REHAB. RN TO CALL REPORT TO [address] [place] [address]. CM TO FOLLOW AND ASSIST NEEDED. ENTERED DATE: 09/22/20 12:01 CT COMMENT TYPE: Discharge Planning REVIEWER: Florence Galeana CM FAXED REFERRAL TO [facility] IN [facility]. WAITING CALL BACK. DCP REVIEW SUMMARY ANTICIPATED D/C DATE: EXPECTED LOS : CASE STATUS: DCP Initiated INITIAL REVIEW: 09/15/2020 INITIAL REVIEWER: Seema Casillas FINAL DISCHARGE DISPOSITION: : FINAL REVIEWER: FINAL REVIEW DATE: DCP Focus Questions & Answers QUESTION: ANSWER : PROVIDER NETWORKING REVIEW DATE: 09/22/2020 SERVICE TYPE: [facility] REVIEWER: Florence Galeana PATIENT: MIGUEL ANGEL RENE ENCOUNTER: [id number] MEDICAL RECORD#: [id number] ADMISSION DATE: 09/15/2020 DISCHARGE DATE: 09/25/2020 ATTENDING MD: NAYA GOODE : AGE: 80 MARITAL STATUS: D DC PLAN ID: [id number] FACILITY: [facility] PRINTED ON: 09/25/20 16:29 CT All edits/amendments must be made on the electronic document DICTATION DATE: 09/25/201628 BONE CHAR KILN OPERATOR: MOISES 09/25/201628 RPT#: [id number] DC DATE:09/25/20 STATUS: DIS IN [facility] [address] [id number] END OF REPORT
--- NOTE | 2020-09-26 16:42 | MORECARE ---
CASE MANAGEMENT DISCHARGE SUMMARY PATIENT: MIGUEL ANGEL RENE UNIT: [id number] ADM DATE: 09/15/20 AGE: 80 : 42 SEX: F ROOM/BED: D.2229 AUTHOR: [facility] PHYSICIAN: REFERRING PHYSICIAN: NAYA MCMAHON DO DATE OF SERVICE: 09/26/20 Case Management Discharge Planning Summary COMMENTS ENTERED DATE: 09/25/20 13:51 CT COMMENT TYPE: Discharge Planning REVIEWER: Florence Galeana SPOKE WITH JUAN AT [facility] AND CONFIRMED THEY ARE ACCEPTING PATIENT TODAY. PATIENT WILL TRAVEL VIA AMBULANE TO REHAB. RN TO CALL REPORT TO [address] [place] [address]. CM TO FOLLOW AND ASSIST NEEDED. ENTERED DATE: 09/22/20 12:01 CT COMMENT TYPE: Discharge Planning REVIEWER: Florence Galeana CM FAXED REFERRAL TO [facility] IN [facility]. WAITING CALL BACK. DCP REVIEW SUMMARY ANTICIPATED D/C DATE: EXPECTED LOS : CASE STATUS: DCP Complete INITIAL REVIEW: 09/15/2020 INITIAL REVIEWER: Seema Casillas FINAL DISCHARGE DISPOSITION: : FINAL REVIEWER: FINAL REVIEW DATE: DCP [employer] QUESTION: ANSWER : PROVIDER NETWORKING REVIEW DATE: 09/22/2020 SERVICE TYPE: [facility] REVIEWER: Florence Galeana PATIENT: MIGUEL ANGEL RENE ENCOUNTER: [id number] MEDICAL RECORD#: [id number] ADMISSION DATE: 09/15/2020 DISCHARGE DATE: 09/25/2020 ATTENDING MD: NAYA GOODE : AGE: 80 MARITAL STATUS: D DC PLAN ID: [id number] FACILITY: [facility] PRINTED ON: 09/26/20 16:41 CT All edits/amendments must be made on the electronic document DICTATION DATE: 09/26/201640 INTERNAL REVIEW AND AUDIT COMPLIANCE: MOISES 09/26/201640 RPT#: [id number] DC DATE:09/25/20 STATUS: DIS IN [facility] [address] [id number] END OF REPORT
== END 2020-09-25 15:00 | DRG 480 ==
LOC: D.ER 21:57 → D.MS 23:36 → D.EDHOLD 23:36 → D.MS 09-16 10:42
PROVIDERS: Anesthesiology; Emergency Medicine; Family Medicine; Internal Medicine Hematology & Oncology; Orthopaedic Surgery; ADMIT Family Medicine; ATTEND Family Medicine
PROC: 0QS604Z Reposition Right Upper Femur with Internal Fixation Device, Open Approach (ICD-10-PCS; principal; 2020-09-19 13:30)
PROC: 0DB98ZX Excision of Duodenum, Via Natural or Artificial Opening Endoscopic, Diagnostic (ICD-10-PCS; 2020-09-24)
DX: M97.01XA Periprosthetic fracture around internal prosthetic right hip joint, initial encounter (principal); J18.9 Pneumonia, unspecified organism; W19.XXXA Unspecified fall, initial encounter; D64.9 Anemia, unspecified; E03.9 Hypothyroidism, unspecified; I25.10 Atherosclerotic heart disease of native coronary artery without angina pectoris; F32.9 Major depressive disorder, single episode, unspecified; G89.29 Other chronic pain; M54.9 Dorsalgia, unspecified; Z86.73 Personal history of transient ischemic attack (TIA), and cerebral infarction without residual deficits; Z79.01 Long term (current) use of anticoagulants; Z95.1 Presence of aortocoronary bypass graft; Z85.828 Personal history of other malignant neoplasm of skin; M19.90 Unspecified osteoarthritis, unspecified site